=== PATIENT | female | born 1985 | race African-American/Black ===

== ENCOUNTER 2017-05-04 21:03 | Emergency (ER) | payer OTHER ==
[~2017-05-04] VITALS: Ht 165.1 cm; Wt 86.2 kg
[2017-05-04] MEDS ORDERED: PROMETH-CODEIN 65 ML PO (21:50)
[2017-05-04] MEDS ORDERED: ZPAK PO (21:50)
== END 2017-05-04 22:07 | disposition home or self-care (01) ==
LOC: ER 21:03
DX: J18.8 Other pneumonia, unspecified organism (principal)